=== PATIENT | male | born 2000 | race Caucasian/White ===

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

== ENCOUNTER 2018-01-04 15:11 | Inpatient (IN) | payer MEDICAID ==
[2018-01-21] MEDS ORDERED: oxyCODONE IR 5 MG TAB PO PRN (15:26)
[2018-01-21] MEDS ORDERED: SENNOSIDES 1 TAB PO PRN (15:26)
[2018-01-21] MEDS ORDERED: BISACODYL 10 MG SUPP PR PRN (15:26)
[2018-01-21] MEDS ORDERED: CYCLOBENZAPRINE 10 MG TAB PO PRN (15:26)
[2018-01-21] MEDS ORDERED: [UNRECOGNIZED DRUG - REMARK] PO PRN (15:26)
[2018-01-21] MEDS ORDERED: ACETAMINOPHEN 650 MG/20.3 ML UDCUP PO PRN (15:45)
[2018-01-21] MEDS ORDERED: CETIRIZINE 10 MG TAB PO PRN (15:46)
[2018-01-21] MEDS ORDERED: ACETAMINOPHEN 325 MG TAB PO PRN (15:47)
--- NOTE | 2018-01-21 15:49 | PDOREHIP ---
Admission [facility] - Admission - 3 Day Assessment Period Admission Date/Day 1: 01/21/18 Day 2: 01/22/18 Day 3: 01/23/18 - Active Diagnoses Comorbidities and Co-existing Conditions at Admission: 02147. None of the Above - Skin Conditions Unhealed Pressure Ulcer (1 or more/Stage 1 or >)-Admission: 0. No
[2018-01-21] MEDS: BACLOFEN 10 MG TAB PO SCH ×2 (16:06→21:19)
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
[2018-01-21] MEDS ORDERED: LEVETIRACETAM 750 MG PO SCH (21:00)
[2018-01-21] MEDS: HEPARIN 5,000 UNIT/0.5 ML SYR SC SCH (21:19)
[2018-01-21] MEDS: levETIRAcetam 250 MG TAB PO SCH (21:19)
[2018-01-22] MEDS: HEPARIN 5,000 UNIT/0.5 ML SYR SC SCH ×3 (05:41→21:57)
[2018-01-22 08:07] LABS: PLATELET COUNT 341 10^3/uL (150-400)
[2018-01-22] MEDS: levETIRAcetam 250 MG TAB PO SCH ×2 (08:57→21:56)
[2018-01-22] MEDS: ESCITALOPRAM OXALATE 10 MG TAB PO SCH (08:57)
[2018-01-22] MEDS: POLYETHYLENE GLYCOL 3350 17 GM PKT PO SCH (08:58)
[2018-01-22] MEDS: BACLOFEN 10 MG TAB PO SCH ×3 (08:58→21:56)
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
[2018-01-23] MEDS: HEPARIN 5,000 UNIT/0.5 ML SYR SC SCH ×3 (06:47→21:34)
[2018-01-23] MEDS: BACLOFEN 10 MG TAB PO SCH ×3 (08:59→22:52)
[2018-01-23] MEDS: ESCITALOPRAM OXALATE 10 MG TAB PO SCH (08:59)
[2018-01-23] MEDS: levETIRAcetam 250 MG TAB PO SCH ×2 (08:59→21:34)
[2018-01-23] MEDS: POLYETHYLENE GLYCOL 3350 17 GM PKT PO SCH (09:03)
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
[2018-01-24] MEDS: HEPARIN 5,000 UNIT/0.5 ML SYR SC SCH ×3 (06:20→20:45)
[2018-01-24] MEDS: POLYETHYLENE GLYCOL 3350 17 GM PKT PO SCH (08:52)
[2018-01-24] MEDS: levETIRAcetam 250 MG TAB PO SCH ×2 (08:53→20:45)
[2018-01-24] MEDS: ESCITALOPRAM OXALATE 10 MG TAB PO SCH (08:53)
[2018-01-24] MEDS: BACLOFEN 10 MG TAB PO SCH ×3 (08:53→20:45)
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
[2018-01-25] MEDS: HEPARIN 5,000 UNIT/0.5 ML SYR SC SCH ×3 (06:31→21:00)
[2018-01-25] MEDS: POLYETHYLENE GLYCOL 3350 17 GM PKT PO SCH (08:43)
[2018-01-25] MEDS: BACLOFEN 10 MG TAB PO SCH ×3 (08:44→20:59)
[2018-01-25] MEDS: ESCITALOPRAM OXALATE 10 MG TAB PO SCH (08:45)
[2018-01-25] MEDS: levETIRAcetam 250 MG TAB PO SCH ×2 (08:45→20:59)
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
[2018-01-26] MEDS: HEPARIN 5,000 UNIT/0.5 ML SYR SC SCH ×3 (05:50→20:26)
[2018-01-26] MEDS: BACLOFEN 10 MG TAB PO SCH ×3 (08:42→20:25)
[2018-01-26] MEDS: ESCITALOPRAM OXALATE 10 MG TAB PO SCH (08:42)
[2018-01-26] MEDS: levETIRAcetam 250 MG TAB PO SCH ×2 (08:42→20:21)
[2018-01-26] MEDS: POLYETHYLENE GLYCOL 3350 17 GM PKT PO SCH (08:43)
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
[2018-01-26] MEDS: FERROUS SULFATE 325 MG TAB PO SCH (12:04)
[2018-01-27] MEDS: HEPARIN 5,000 UNIT/0.5 ML SYR SC SCH ×3 (05:11→21:42)
[2018-01-27] MEDS: FERROUS SULFATE 325 MG TAB PO SCH (08:46)
[2018-01-27] MEDS: BACLOFEN 10 MG TAB PO SCH ×3 (08:46→21:42)
[2018-01-27] MEDS: ESCITALOPRAM OXALATE 10 MG TAB PO SCH (08:46)
[2018-01-27] MEDS: levETIRAcetam 250 MG TAB PO SCH ×2 (08:46→21:42)
[2018-01-27] MEDS: POLYETHYLENE GLYCOL 3350 17 GM PKT PO SCH (08:47)
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
[2018-01-28] MEDS: HEPARIN 5,000 UNIT/0.5 ML SYR SC SCH ×3 (06:44→22:06)
[2018-01-28] MEDS: ESCITALOPRAM OXALATE 10 MG TAB PO SCH (08:19)
[2018-01-28] MEDS: levETIRAcetam 250 MG TAB PO SCH ×2 (08:19→22:05)
[2018-01-28] MEDS: POLYETHYLENE GLYCOL 3350 17 GM PKT PO SCH (08:19)
[2018-01-28] MEDS: FERROUS SULFATE 325 MG TAB PO SCH (08:19)
[2018-01-28] MEDS: BACLOFEN 10 MG TAB PO SCH (08:19)
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
[2018-01-28] MEDS ORDERED: SENNOSIDES 1 TAB PO PRN (12:33)
[2018-01-28] MEDS: BACLOFEN 20 MG TAB PO SCH ×2 (15:51→22:05)
[2018-01-29] MEDS: HEPARIN 5,000 UNIT/0.5 ML SYR SC SCH ×3 (06:30→20:30)
[2018-01-29] MEDS: levETIRAcetam 250 MG TAB PO SCH ×2 (08:39→20:30)
[2018-01-29] MEDS: BACLOFEN 20 MG TAB PO SCH ×3 (08:41→20:30)
[2018-01-29] MEDS: ESCITALOPRAM OXALATE 10 MG TAB PO SCH (08:41)
[2018-01-29] MEDS: FERROUS SULFATE 325 MG TAB PO SCH (08:42)
[2018-01-29] MEDS: POLYETHYLENE GLYCOL 3350 17 GM PKT PO SCH (08:42)
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
[2018-01-30] MEDS: HEPARIN 5,000 UNIT/0.5 ML SYR SC SCH ×3 (06:18→20:09)
[2018-01-30] MEDS: ESCITALOPRAM OXALATE 10 MG TAB PO SCH (08:46)
[2018-01-30] MEDS: FERROUS SULFATE 325 MG TAB PO SCH (08:46)
[2018-01-30] MEDS: levETIRAcetam 250 MG TAB PO SCH ×2 (08:46→20:09)
[2018-01-30] MEDS: BACLOFEN 20 MG TAB PO SCH ×3 (08:46→20:09)
[2018-01-30] MEDS: POLYETHYLENE GLYCOL 3350 17 GM PKT PO SCH (08:47)
[2018-01-30] MEDS ORDERED: oxyCODONE IR 5 MG TAB PO PRN (10:17)
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
[2018-01-31] MEDS: HEPARIN 5,000 UNIT/0.5 ML SYR SC SCH ×3 (06:21→22:15)
[2018-01-31] MEDS: FERROUS SULFATE 325 MG TAB PO SCH (09:43)
[2018-01-31] MEDS: ESCITALOPRAM OXALATE 10 MG TAB PO SCH (09:43)
[2018-01-31] MEDS: levETIRAcetam 250 MG TAB PO SCH ×2 (09:43→22:15)
[2018-01-31] MEDS: POLYETHYLENE GLYCOL 3350 17 GM PKT PO SCH (09:43)
[2018-01-31] MEDS: BACLOFEN 20 MG TAB PO SCH ×3 (09:43→22:15)
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
[2018-02-01] MEDS: HEPARIN 5,000 UNIT/0.5 ML SYR SC SCH ×3 (06:38→21:40)
[2018-02-01] MEDS: FERROUS SULFATE 325 MG TAB PO SCH (08:48)
[2018-02-01] MEDS: levETIRAcetam 250 MG TAB PO SCH ×2 (08:48→21:39)
[2018-02-01] MEDS: POLYETHYLENE GLYCOL 3350 17 GM PKT PO SCH (08:48)
[2018-02-01] MEDS: ESCITALOPRAM OXALATE 10 MG TAB PO SCH (08:48)
[2018-02-01] MEDS: BACLOFEN 20 MG TAB PO SCH ×3 (08:48→21:39)
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
[2018-02-02] MEDS: HEPARIN 5,000 UNIT/0.5 ML SYR SC SCH ×3 (06:21→21:47)
[2018-02-02] MEDS: BACLOFEN 20 MG TAB PO SCH ×3 (08:07→21:47)
[2018-02-02] MEDS: ESCITALOPRAM OXALATE 10 MG TAB PO SCH (08:07)
[2018-02-02] MEDS: POLYETHYLENE GLYCOL 3350 17 GM PKT PO SCH (08:07)
[2018-02-02] MEDS: FERROUS SULFATE 325 MG TAB PO SCH (08:07)
[2018-02-02] MEDS: levETIRAcetam 250 MG TAB PO SCH ×2 (08:07→21:48)
[2018-02-02 08:54] LABS: PLATELET COUNT 314 10^3/uL (150-400)
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
[2018-02-02] MEDS: DOXYCYCLINE HYCLATE 100 MG CAP/TAB PO SCH (21:47)
[2018-02-03] MEDS: HEPARIN 5,000 UNIT/0.5 ML SYR SC SCH (06:41)
[2018-02-03] MEDS: ESCITALOPRAM OXALATE 10 MG TAB PO SCH (08:05)
[2018-02-03] MEDS: DOXYCYCLINE HYCLATE 100 MG CAP/TAB PO SCH ×2 (08:05→20:16)
[2018-02-03] MEDS: BACLOFEN 20 MG TAB PO SCH ×3 (08:05→20:16)
[2018-02-03] MEDS: levETIRAcetam 250 MG TAB PO SCH ×2 (08:06→20:16)
[2018-02-03] MEDS: FERROUS SULFATE 325 MG TAB PO SCH (08:06)
[2018-02-03] MEDS: POLYETHYLENE GLYCOL 3350 17 GM PKT PO SCH (08:07)
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
[2018-02-04] MEDS: DOXYCYCLINE HYCLATE 100 MG CAP/TAB PO SCH ×2 (08:55→20:06)
[2018-02-04] MEDS: levETIRAcetam 250 MG TAB PO SCH ×2 (08:55→20:06)
[2018-02-04] MEDS: POLYETHYLENE GLYCOL 3350 17 GM PKT PO SCH (08:55)
[2018-02-04] MEDS: FERROUS SULFATE 325 MG TAB PO SCH (08:55)
[2018-02-04] MEDS: ESCITALOPRAM OXALATE 10 MG TAB PO SCH (08:55)
[2018-02-04] MEDS: BACLOFEN 20 MG TAB PO SCH ×3 (08:55→20:06)
[2018-02-05] MEDS: POLYETHYLENE GLYCOL 3350 17 GM PKT PO SCH (08:31)
[2018-02-05] MEDS: BACLOFEN 20 MG TAB PO SCH ×3 (08:33→21:56)
[2018-02-05] MEDS: FERROUS SULFATE 325 MG TAB PO SCH (08:34)
[2018-02-05] MEDS: DOXYCYCLINE HYCLATE 100 MG CAP/TAB PO SCH ×2 (08:34→21:56)
[2018-02-05] MEDS: ESCITALOPRAM OXALATE 10 MG TAB PO SCH (08:34)
[2018-02-05] MEDS: levETIRAcetam 250 MG TAB PO SCH ×2 (08:35→21:56)
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
[2018-02-06] MEDS: FERROUS SULFATE 325 MG TAB PO SCH (08:44)
[2018-02-06] MEDS: DOXYCYCLINE HYCLATE 100 MG CAP/TAB PO SCH ×2 (08:44→21:45)
[2018-02-06] MEDS: BACLOFEN 20 MG TAB PO SCH ×3 (08:44→21:46)
[2018-02-06] MEDS: levETIRAcetam 250 MG TAB PO SCH ×2 (08:44→21:46)
[2018-02-06] MEDS: ESCITALOPRAM OXALATE 10 MG TAB PO SCH (08:44)
[2018-02-06] MEDS: POLYETHYLENE GLYCOL 3350 17 GM PKT PO SCH (09:23)
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
[2018-02-07] MEDS: ESCITALOPRAM OXALATE 10 MG TAB PO SCH (08:24)
[2018-02-07] MEDS: levETIRAcetam 250 MG TAB PO SCH ×2 (08:25→20:31)
[2018-02-07] MEDS: DOXYCYCLINE HYCLATE 100 MG CAP/TAB PO SCH ×2 (08:25→20:31)
[2018-02-07] MEDS: BACLOFEN 20 MG TAB PO SCH ×3 (08:26→20:31)
[2018-02-07] MEDS: FERROUS SULFATE 325 MG TAB PO SCH (08:26)
[2018-02-07] MEDS: POLYETHYLENE GLYCOL 3350 17 GM PKT PO SCH (08:32)
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
[2018-02-08] MEDS: POLYETHYLENE GLYCOL 3350 17 GM PKT PO SCH (08:10)
[2018-02-08] MEDS: BACLOFEN 20 MG TAB PO SCH ×3 (08:11→20:11)
[2018-02-08] MEDS: DOXYCYCLINE HYCLATE 100 MG CAP/TAB PO SCH ×2 (08:11→20:11)
[2018-02-08] MEDS: levETIRAcetam 250 MG TAB PO SCH ×2 (08:12→20:11)
[2018-02-08] MEDS: FERROUS SULFATE 325 MG TAB PO SCH (08:12)
[2018-02-08] MEDS: ESCITALOPRAM OXALATE 10 MG TAB PO SCH (08:12)
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
[2018-02-09] MEDS: BACLOFEN 20 MG TAB PO SCH ×3 (08:41→21:17)
[2018-02-09] MEDS: levETIRAcetam 250 MG TAB PO SCH ×2 (08:41→21:13)
[2018-02-09] MEDS: FERROUS SULFATE 325 MG TAB PO SCH (08:41)
[2018-02-09] MEDS: DOXYCYCLINE HYCLATE 100 MG CAP/TAB PO SCH (08:41)
[2018-02-09] MEDS: ESCITALOPRAM OXALATE 10 MG TAB PO SCH (08:41)
[2018-02-09] MEDS: POLYETHYLENE GLYCOL 3350 17 GM PKT PO SCH (08:43)
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
[2018-02-10] MEDS: POLYETHYLENE GLYCOL 3350 17 GM PKT PO SCH (08:15)
[2018-02-10] MEDS: levETIRAcetam 250 MG TAB PO SCH ×2 (08:16→20:04)
[2018-02-10] MEDS: FERROUS SULFATE 325 MG TAB PO SCH (08:16)
[2018-02-10] MEDS: ESCITALOPRAM OXALATE 10 MG TAB PO SCH (08:16)
[2018-02-10] MEDS: BACLOFEN 20 MG TAB PO SCH ×3 (08:16→20:04)
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
[2018-02-11] MEDS: POLYETHYLENE GLYCOL 3350 17 GM PKT PO SCH (08:30)
[2018-02-11] MEDS: BACLOFEN 20 MG TAB PO SCH ×3 (08:31→21:59)
[2018-02-11] MEDS: ESCITALOPRAM OXALATE 10 MG TAB PO SCH (08:31)
[2018-02-11] MEDS: levETIRAcetam 250 MG TAB PO SCH ×2 (08:32→21:59)
[2018-02-11] MEDS: FERROUS SULFATE 325 MG TAB PO SCH (08:32)
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
[2018-02-12] MEDS: POLYETHYLENE GLYCOL 3350 17 GM PKT PO SCH (08:34)
[2018-02-12] MEDS: FERROUS SULFATE 325 MG TAB PO SCH (08:35)
[2018-02-12] MEDS: ESCITALOPRAM OXALATE 10 MG TAB PO SCH (08:35)
[2018-02-12] MEDS: levETIRAcetam 250 MG TAB PO SCH ×2 (08:35→21:37)
[2018-02-12] MEDS: BACLOFEN 20 MG TAB PO SCH ×3 (08:35→21:37)
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
[2018-02-13] MEDS: BACLOFEN 20 MG TAB PO SCH ×3 (08:36→21:03)
[2018-02-13] MEDS: POLYETHYLENE GLYCOL 3350 17 GM PKT PO SCH (08:36)
[2018-02-13] MEDS: levETIRAcetam 250 MG TAB PO SCH ×2 (08:36→21:03)
[2018-02-13] MEDS: ESCITALOPRAM OXALATE 10 MG TAB PO SCH (08:36)
[2018-02-13] MEDS: FERROUS SULFATE 325 MG TAB PO SCH (08:36)
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
[2018-02-14 07:50] VITALS: RESP 16
[2018-02-14] MEDS: POLYETHYLENE GLYCOL 3350 17 GM PKT PO SCH (07:50)
[2018-02-14] MEDS: ESCITALOPRAM OXALATE 10 MG TAB PO SCH (08:37)
[2018-02-14] MEDS: levETIRAcetam 250 MG TAB PO SCH ×2 (08:37→20:48)
[2018-02-14] MEDS: BACLOFEN 20 MG TAB PO SCH ×3 (08:37→20:48)
[2018-02-14] MEDS: FERROUS SULFATE 325 MG TAB PO SCH (08:37)
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
[2018-02-15] MEDS: FERROUS SULFATE 325 MG TAB PO SCH (08:17)
[2018-02-15] MEDS: ESCITALOPRAM OXALATE 10 MG TAB PO SCH (08:17)
[2018-02-15] MEDS: BACLOFEN 20 MG TAB PO SCH ×3 (08:17→20:41)
[2018-02-15] MEDS: levETIRAcetam 250 MG TAB PO SCH ×2 (08:17→20:41)
[2018-02-15] MEDS: POLYETHYLENE GLYCOL 3350 17 GM PKT PO SCH (08:29)
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
[2018-02-15] MEDS ORDERED: IOPAMIDOL (ISOVUE-300) 100 ML BTL ONE (16:41)
[2018-02-15 17:13] LABS: PLATELET COUNT 325 10^3/uL (150-400)
--- NOTE | 2018-02-15 18:17 | PDOREHIP ---
Admission [facility] - Admission - 3 Day Assessment Period Admission Date/Day 1: 01/21/18 Day 2: 01/22/18 Day 3: 01/23/18 Discharge [facility] - Discharge - 3 Day Assessment Period 2 Days Prior to Anticipated Discharge Date: 02/14/18 1 Day Prior to Anticipated Discharge Date: 02/15/18 Anticipated Discharge Date: 02/16/18 - Discharge Skin Conditions Unhealed Pressure Ulcer (1 or more/Stage 1 or >)-Discharge: 0. No
[2018-02-15 21:09] VITALS: TEMP 98.2
[2018-02-16] MEDS: levETIRAcetam 250 MG TAB PO SCH (08:19)
[2018-02-16] MEDS: FERROUS SULFATE 325 MG TAB PO SCH (08:19)
[2018-02-16] MEDS: BACLOFEN 20 MG TAB PO SCH (08:19)
[2018-02-16] MEDS: ESCITALOPRAM OXALATE 10 MG TAB PO SCH (08:19)
[2018-02-16] MEDS: POLYETHYLENE GLYCOL 3350 17 GM PKT PO SCH (08:23)
[2018-02-16 08:32] VITALS: BP 103/64; PULSE 86; O2SAT 93
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
== END 2018-02-16 14:52 | disposition home health service (06) | DRG 949 ==
LOC: BREH 01-21 13:43
PROVIDERS: ADMIT Internal Medicine; ATTEND Internal Medicine
PROC: F07M3ZZ Motor Function Treatment of Musculoskeletal System - Whole Body (ICD-10-PCS; principal; 2018-01-21)
PROC: F0636ZZ Communicative/Cognitive Integration Skills Treatment of Neurological System - Whole Body (ICD-10-PCS; principal; 2018-01-21)
PROC: F08Z7ZZ Vocational Activities and Functional Community or Work Reintegration Skills Treatment (ICD-10-PCS; principal; 2018-01-21)
DX: Z48.811 Encounter for surgical aftercare following surgery on the nervous system (principal); R47.01 Aphasia; R56.1 Post traumatic seizures; S06.6X9D Traumatic subarachnoid hemorrhage with loss of consciousness of unspecified duration, subsequent encounter; S06.5X9D Traumatic subdural hemorrhage with loss of consciousness of unspecified duration, subsequent encounter; S02.0XXD Fracture of vault of skull, subsequent encounter for fracture with routine healing; S06.1X9D Traumatic cerebral edema with loss of consciousness of unspecified duration, subsequent encounter; G83.21 Monoplegia of upper limb affecting right dominant side; Z93.1 Gastrostomy status; W34.00XD Accidental discharge from unspecified firearms or gun, subsequent encounter; Z95.828 Presence of other vascular implants and grafts; R25.2 Cramp and spasm; R25.8 Other abnormal involuntary movements; K59.00 Constipation, unspecified; F32.9 Major depressive disorder, single episode, unspecified; D64.9 Anemia, unspecified; Z86.19 Personal history of other infectious and parasitic diseases
CPT/HCPCS: 92507-GN; 92522-GN; 97110-GO; 97110-GP; 97112-GO; 97112-GP; 97116-GP; 97163-GP; 97166-GO; 97530-GO; 97530-GP; 97535-GO; 97537-GO; 97542-GP; 97760-GP; 99366-GO; J1644; Q9967